=== PATIENT | male | born 1940 | race African-American/Black ===

== ENCOUNTER 2024-01-11 00:09 | Emergency (ER) | payer OTHER ==
[~2024-01-11] VITALS: Ht 152.4 cm; Wt 60.0 kg
[2024-01-11 00:16] VITALS: TEMP 98.4
[2024-01-11] MEDS ORDERED: METHYLPREDNISOLONE SOD SUCC 125MG/2ML (ACT-O-VIAL) IV STA (00:22)
[2024-01-11 00:51] VITALS: PULSE 70; RESP 20; O2SAT 97
[2024-01-11] MEDS: IPRATROPIUM BROMIDE (0.02%) 0.5MG/2.5ML NEB HHN STA (00:51)
[2024-01-11 00:52] LABS: CHLORIDE 102 mEq/L (98-107); POTASSIUM 5.1 mEq/L (3.5-5.1); SODIUM 136 mEq/L (136-145)
[2024-01-11 00:53] LABS: CARBON DIOXIDE 25 mEq/L (21-32)
[2024-01-11 00:54] LABS: CALCIUM 9.8 mg/dL (8.7-10.4)
[2024-01-11 00:58] LABS: CREATININE 3.5 mg/dL (0.6-1.3); GLUCOSE 181 mg/dL (70-105); UREA NITROGEN BLOOD 30 mg/dL (9-23)
[2024-01-11 00:59] LABS: TROPONIN I HIGH SENSITIVITY 33 ng/L (3.0-53)
[2024-01-11] MEDS: ALBUTEROL (0.083%) 2.5MG/3ML NEB HHN SCH (01:00)
[2024-01-11 01:06] LABS: BASOPHILS % 0.6 % (0.0-2.0); EOSINOPHILS % 0.3 % (0.0-5.0); HEMATOCRIT. 30.3 % (42.0-52.0); HEMOGLOBIN. 9.5 g/dL (14.0-18.0); MEAN CORPUSCULAR HEMOGLOBIN 30.4 pg (28.0-32.0); MEAN CORPUSCULAR HGB CONC 31.5 g/dL (31.0-37.0); MEAN CORPUSCULAR VOLUME 96.6 fL (80.0-94.0); MEAN PLATELET VOLUME 6.5 fl (7.4-10.4); MONOCYTES % 7.3 % (2.0-8.0); NEUTROPHILS % 78.8 % (40.0-76.0); PLATELET 283 x1000/uL (130-400); RED BLOOD CELL COUNT 3.14 mill/uL (4.7-6.1); RED CELL DISTRIBUTION WIDTH 16.5 % (11.6-14.6); WHITE BLOOD COUNT 5.7 x1000/uL (4.5-11.0)
[2024-01-11] MEDS: FUROSEMIDE 40MG/4ML VIAL IVP ONE (03:41)
[2024-01-11] MEDS: METHYLPREDNISOLONE SOD SUCC 125MG/2ML (ACT-O-VIAL) IV NR (03:41)
[2024-01-11 04:23] VITALS: BP 132/69; PULSE 86; RESP 24
== END 2024-01-11 06:50 | disposition short-term general hospital (02) ==
LOC: ER 00:09 → EDBEDREQTM 04:02 → EDBEDREQ 04:02 → ER 06:50
DX: J90 Pleural effusion, not elsewhere classified (principal); I48.91 Unspecified atrial fibrillation; I50.9 Heart failure, unspecified; J44.9 Chronic obstructive pulmonary disease, unspecified; E11.9 Type 2 diabetes mellitus without complications
CPT/HCPCS: 80048; 83880; 85025; 84484; 36415; 71045; 94640; 93005; 96374; 96375; 99291; J1940; J2930